=== PATIENT | male | born 1965 | race Caucasian/White ===

== ENCOUNTER 2017-09-07 18:08 | Emergency (ER) | payer OTHER ==
[~2017-09-07] VITALS: Ht 177.8 cm; Wt 100.0 kg
[~2017-09-07 18:08] MED LIST: ASPI81TA82 PO; CARV3.125 PO; GLUCOMETER XX; GLUCOMTESTSTRIPS XX; LEVEMIR SQ; LIPI10TA PO; NAPR220T95 PO; NOVOLOGSS SQ
[2017-09-07 18:13] VITALS: BP 164/80; PULSE 88; RESP 16; TEMP 99.3; O2SAT 96
[2017-09-07] MEDS ORDERED: LISI-519 PO (18:30)
[2017-09-07] MEDS ORDERED: ASPI-516 CHEW (18:30)
[2017-09-07] MEDS ORDERED: LANTUS2P SQ (18:30)
[2017-09-07] MEDS ORDERED: SIMV5TAB3 PO (18:30)
[2017-09-07] MEDS ORDERED: LIDOCAINE HCL 2% 50 ML VIAL NERV BLOCK ONE (18:30)
[2017-09-07] MEDS ORDERED: SULFAMETHOXAZOLE-TRIMETHOPRIM DS 800-160 MG TAB PO ONE (18:30)
[2017-09-07] MEDS ORDERED: METF1000 PO (18:30)
[2017-09-07] MEDS ORDERED: INSU1POW25 SQ (18:30)
--- NOTE | 2017-09-07 19:24 | PD ---
HPI Chief Complaint: Skin Problem Time Seen by Provider: 18:16 Travel History International Travel<30 days: No Contact w/Intl Traveler<30days: No Traveled to known affect area: No History of Present Illness HPI 52-year-old male presents emergency department for evaluation of a lesion on his posterior scalp that has been present for approximately 3 weeks. States that area has become enlarged more painful so decided to come to the emergency room today for evaluation. Says the pain is mild to moderate, worse with palpation, nonradiating. Patient states that he has history of folliculitis but has never had an abscess or 1 of these lesions before. Says that he has been picking at his hair follicles trying to remove possible ingrown hairs however this is only worsened his condition. He denies fever, chills, chest pain, shortness of breath, dysphagia. Denies nausea, vomiting or diarrhea. Patient has a full range of motion of his neck. He has a history of diabetes, hypertension. PFSH Past Medical History Hx Anticoagulant Therapy: Yes Cancer: No Cardiac Catheterization: Yes Cardiovascular Problems: Yes (stents x 2 -08/2012) High Cholesterol: Yes Coronary Artery Disease: Yes Diabetes: Yes Patient Takes Glucophage: Yes Gastrointestinal Disorders: Yes (hx of gallstones) GERD: Yes Genitourinary: No Hypertension: Yes Implanted Vascular Access Dvce: No Musculoskeletal: No Neurologic: No Psychiatric: No Respiratory: No Myocardial Infarction: No Influenza Vaccination: No ?: Not Past Surgical History AICD: No Arteriovenous Shunt: No Coronary Stent: Yes (x2 08/2012) Insulin Pump: No Joint Replacement: No Pacemaker: No Social History Alcohol Use: Yes (rarely) Tobacco Use: Yes (dips tobacco, one can every 2-3 days) Substance Use: No Allergies-Medications (Allergen,Severity, Reaction): Coded Allergies: No Known Allergies (Unverified Adverse Reaction, Unknown, 09/07/17) Reported Meds & Prescriptions Reported Meds & Active Scripts Active Bactrim DS (Sulfamethoxazole-Trimethoprim) 800-160 Mg Tab 1 Tab PO BID Reported Lisinopril 5 Mg Tab 5 Mg PO DAILY Metformin (Metformin HCl) 1,000 Mg Tab 1,000 Mg PO BIDPC Lantus Inj (Insulin Glargine) 1,000 Unit/10 Ml Vial 28 Units SQ HS Afrezza 4 & 8 & 12 Unit (Insulin Regular (Human)) 4-8-12(60) Pow 12 Unit SQ BID Simvastatin 5 Mg Tab 5 Mg PO DAILY Aspirin 81 Mg Chew 81 Mg CHEW DAILY Review of Systems Except as stated in HPI: all other systems reviewed are Neg Physical Exam Narrative GENERAL: Well-nourished, well-developed patient. SKIN: Focused skin assessment warm/dry. Posterior scalp-4 cm round, fluctuant area with central puncta. Consistent patient's history of trying to remove follicles from the area. Bilateral upper and lower extremities with multiple what appears to be folliculitis. HEAD: Normocephalic. EYES: No scleral icterus. No injection or drainage. NECK: Supple, trachea midline. No JVD or lymphadenopathy. No meningismus CARDIOVASCULAR: Regular rate and rhythm without murmurs, gallops, or rubs. RESPIRATORY: Breath sounds equal bilaterally. No accessory muscle use. MUSCULOSKELETAL: No cyanosis, or edema. BACK: Nontender without obvious deformity. No CVA tenderness. Data Data Last Documented VS Vital Signs Date Time Temp Pulse Resp B/P (MAP) Pulse Ox O2 Delivery O2 Flow Rate FiO2 09/07/17 18:13 99.3 88 16 164/80 (108) 96 Orders Orders Lidocaine 2% Inj (Xylocaine 2% Inj) (09/07/17 18:30) Sulfamet-Trimeth Ds 800-160 Mg (Bactrim (09/07/17 18:30) Ed Discharge Order (09/07/17 19:25) [facility] Medical Decision Making Medical Screen Exam Complete: Yes Emergency Medical Condition: Yes Differential Diagnosis Folliculitis, abscess, cellulitis Narrative Course 52-year-old male presents emergency department for evaluation of a lesion on the posterior neck. Vital signs are stable. Physical exam findings consistent with an abscess to the occipital lobe and neck region, superficial and mobile. Incision and drainage performed. Bactrim administered in the emergency department today. Prescription for Bactrim as an outpatient for 10 days. Patient does have diabetes so prescribed a longer course than usual, and there was concern for compliance. Patient advised to return to the emergency department approximately 2 days for wound check and evaluation. Advised to return sooner for signs of infection. Procedures Procedure Narrative INCISION AND DRAINAGE OF ABSCESS: The area was prepped and was sterilely draped. A subcutaneous wheal of 2 % Xylocaine without with a total number 2 mL was used to anesthetize the area properly. A number 11 scalpel was used to make a 0.5-cm incision across the area of the abscess. The abscess was drained , complex loculations were broken down, and irrigated with normal saline. Half inch iodoform packing was placed in the wound. Sterile dressing applied. Patient advised to have packing removed in two days. Diagnosis Primary Impression: Abscess Referrals: [facility] Additional Instructions: Return to the emergency department in approximately 2 days for wound check. Keep area clean and dry for at least 24 hours. You may bathe as normal but keep the area clean and dry. Change dressings daily. If the wick falls out, just cover with gauze or Band- Aid to reduce infection. Take all antibiotics as prescribed. If bleeding starts, applied pressure. If he developed increased redness, swelling, or pain return to the emergency department. Scripts Sulfamethoxazole-Trimethoprim (Bactrim DS) 800-160 Mg Tab 1 TAB PO BID for Infection, #20 TAB 0 Refills Prov: Frnak Kulkarni MD 09/07/17 Disposition: 01 DISCHARGE HOME Condition: Stable Grace Chavarria Sep 07, 2017 19:24
[2017-09-07] MEDS ORDERED: BACT800T5 PO (19:25)
== END 2017-09-07 19:44 | disposition home or self-care (01) ==
LOC: PHEFT 18:08
DX: L02.811 Cutaneous abscess of head [any part, except face] (principal); I10 Essential (primary) hypertension; E78.00 Pure hypercholesterolemia, unspecified; I25.10 Atherosclerotic heart disease of native coronary artery without angina pectoris; E11.9 Type 2 diabetes mellitus without complications; F17.220 Nicotine dependence, chewing tobacco, uncomplicated; Z95.5 Presence of coronary angioplasty implant and graft; Z79.84 Long term (current) use of oral hypoglycemic drugs; Z79.899 Other long term (current) drug therapy
CPT/HCPCS: 10061